=== PATIENT | female | born 1985 | race Caucasian/White ===

== ENCOUNTER 2017-07-19 20:32 | Emergency (ER) | payer MEDICAID ==
[~2017-07-19] VITALS: Ht 162.6 cm; Wt 68.0 kg
[~2017-07-19 20:32] MED LIST: CETI-102 PO; TRAM50TA2 PO
[2017-07-19 21:32] LABS: *URINE HCG, QUAL NEGATIVE (NEGATIVE)
[2017-07-19 21:35] LABS: BASOPHILS % (AUTO) 0.5 % (0.0-2.0); EOSINOPHILS # (AUTO) 0.1 K/uL (0.0-0.7); EOSINOPHILS % (AUTO) 1.4 % (0.0-7.0); HEMATOCRIT 42.1 % (31.2-41.9); HEMOGLOBIN 14.2 g/dL (10.9-14.3); LYMPHOCYTES # (AUTO) 3.1 K/uL (20.0-40.0); LYMPHOCYTES % (AUTO) 50.2 % (20.5-51.5); MEAN CORPUSCULAR HGB CONC 34 g/dL (32.3-35.6); MEAN CORPUSCULAR VOLUME 92.3 fL (75.5-95.3); MONOCYTES # (AUTO) 0.6 K/uL (2.0-10.0); MONOCYTES % (AUTO) 9.4 % (0.0-11.0); NEUTROPHILS # (AUTO) 2.4 K/uL (1.8-8.9); NEUTROPHILS % (AUTO) 38.5 % (38.5-71.5); PLATELET COUNT (AUTO) 264 K/uL (179-408); RED BLOOD CELL COUNT(AUTO) 4.56 MIL/uL (3.63-4.92); WHITE BLOOD COUNT (AUTO) 6.2 K/uL (3.8-11.8)
[2017-07-19 21:39] LABS: POTASSIUM 3.5 mmol/L (3.5-5.1)
--- NOTE | 2017-07-19 21:42 | NUR ---
US AT BEDSIDE
[2017-07-19 21:44] LABS: BILIRUBIN,DIRECT 0.1 mg/dL (0.0-0.2); BILIRUBIN,TOTAL 0.3 mg/dL (0.2-1.0); TOTAL PROTEIN, SERUM 8.2 g/dL (6.4-8.2)
[2017-07-19] MEDS ORDERED: ONDANSETRON IV *ER 4 MG/2 ML VIAL IV ONE (22:15)
[2017-07-19] MEDS ORDERED: KETOROLAC TROMETHAMINE 30 MG INJ IVP ONE (22:15)
[2017-07-19] MEDS ORDERED: KETOROLAC TROMETHAMINE 30 MG INJ ONE (22:32)
[2017-07-19] MEDS ORDERED: ONDANSETRON 4 MG/2 ML VIAL ONE (22:32)
--- NOTE | 2017-07-19 22:45 | NUR ---
Patient discharged to home in stable conditon. Written and verbal after care instructions given. Patient verbalizes understanding of instructions. Patient reported reduced pain prior to discharge. Patient able to ambulate unassisted with steady gait. Patient left with all personal belongings.
[2017-07-19 22:49] VITALS: BP 112/61
== END 2017-07-19 22:45 | disposition home or self-care (01) ==
LOC: ER 20:33
DX: N92.0 Excessive and frequent menstruation with regular cycle (principal); R10.2 Pelvic and perineal pain; F17.210 Nicotine dependence, cigarettes, uncomplicated; Z79.891 Long term (current) use of opiate analgesic; Z79.899 Other long term (current) drug therapy
CPT/HCPCS: 36415; 76856; 83690; 84703; 85025; A4663; J1885; J2405

== ENCOUNTER 2019-07-24 13:02 | Emergency (ER) | payer MEDICAID ==
[~2019-07-24] VITALS: Ht 162.6 cm; Wt 70.3 kg
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
--- NOTE | 2019-07-24 13:09 | NUR ---
Patient ambulated with slow steady gait to ER bed 4B, AOx4, calm, pending MD evaluation
--- NOTE | 2019-07-24 13:18 | NUR ---
@bedside, MSE in progress
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
== END 2019-07-24 14:02 | disposition home or self-care (01) ==
LOC: ER 13:10
DX: R07.89 Other chest pain (principal); S40.012A Contusion of left shoulder, initial encounter; S20.211A Contusion of right front wall of thorax, initial encounter; V43.51XA Car driver injured in collision with sport utility vehicle in traffic accident, initial encounter; Y92.410 Unspecified street and highway as the place of occurrence of the external cause
CPT/HCPCS: 71101; A4663

== ENCOUNTER 2019-10-13 14:21 | Emergency (ER) | payer MEDICAID, OTHER ==
[~2019-10-13] VITALS: Ht 162.6 cm; Wt 74.8 kg
[~2019-10-13 14:21] MED LIST changes: -CETI-102 PO; +CETI-110 PO
--- NOTE | 2019-10-13 14:37 | NUR ---
PT IS IN ROOM #2A. DR BARDALES EVALUATED THE PT.
[2019-10-13] MEDS ORDERED: HYDROCODONE/APAP 5-325MG TABLET PO ONE (14:45)
[2019-10-13] MEDS ORDERED: KETOROLAC TROMETHAMINE 60 MG INJ IM ONE ×2 (14:45)
[2019-10-13] MEDS ORDERED: HYDROCODONE/APAP 5-325MG TABLET ONE (14:46)
[2019-10-13] MEDS ORDERED: MORPHINE SULFATE 4 MG/1 ML DISP.SYRIN IM ONE (15:30)
[2019-10-13] MEDS ORDERED: MORPHINE SULFATE 4 MG/1 ML DISP.SYRIN ONE (15:31)
[2019-10-13 15:52] VITALS: BP 131/66
--- NOTE | 2019-10-13 15:52 | NUR ---
PT WAS D/C'd TO HOME. D/C INSTRUCTIONS GIVEN TO THE PT.
== END 2019-10-13 15:53 | disposition home or self-care (01) ==
LOC: ER 14:22
DX: S39.012A Strain of muscle, fascia and tendon of lower back, initial encounter (principal); X58.XXXA Exposure to other specified factors, initial encounter; Y93.89 Activity, other specified; Y92.013 Bedroom of single-family (private) house as the place of occurrence of the external cause; F17.200 Nicotine dependence, unspecified, uncomplicated; Z87.11 Personal history of peptic ulcer disease
CPT/HCPCS: 96372 ×2; 99284; J1885; J2270; A4663

== ENCOUNTER 2019-12-14 13:50 | Emergency (ER) | payer OTHER ==
[~2019-12-14] VITALS: Ht 162.6 cm; Wt 74.8 kg
[~2019-12-14 13:50] MED LIST changes: -CETI-110 PO; +CETI-90 PO
--- NOTE | 2019-12-14 14:42 | NUR ---
chaperoned pelvic us, pt tolerated well.
[2019-12-14 14:50] LABS: *BILIRUBIN,URIN NEGATIVE (NEGATIVE); *BLOOD, URINE NEGATIVE (NEGATIVE); *CLARITY,URINE CLEAR (CLEAR); *COLOR,URINE LIGHT YELLOW (YELLOW); *KETONES,URINE NEGATIVE (NEGATIVE); *UROBILINOGEN,URINE 0.2 E.U./dl (NORMAL); LEUKOCYTE ESTERASE ,URINE NEGATIVE (NEGATIVE); NITRITE, URINE NEGATIVE (NEGATIVE); PH,URINE 7.5 (5.0-8.0); UGLUCOSE NEGATIVE (NEGATIVE)
[2019-12-14 15:07] LABS: BASOPHILS % (AUTO) 0.4 % (0.0-2.0); EOSINOPHILS % (AUTO) 0.8 % (0.0-7.0); HEMATOCRIT 37.3 % (31.2-41.9); HEMOGLOBIN 12.4 g/dL (10.9-14.3); LYMPHOCYTES # (AUTO) 1.6 K/uL (20.0-40.0); LYMPHOCYTES % (AUTO) 26.5 % (20.5-51.5); MEAN CORPUSCULAR HEMOGLOBIN 31.3 uug (24.7-32.8); MEAN CORPUSCULAR HGB CONC 33 g/dL (32.3-35.6); MEAN CORPUSCULAR VOLUME 93.8 fL (75.5-95.3); MONOCYTES # (AUTO) 0.5 K/uL (2.0-10.0); MONOCYTES % (AUTO) 8.3 % (0.0-11.0); NEUTROPHILS # (AUTO) 3.8 K/uL (1.8-8.9); PLATELET COUNT (AUTO) 194 K/uL (179-408); RED BLOOD CELL COUNT(AUTO) 3.97 MIL/uL (3.63-4.92); WHITE BLOOD COUNT (AUTO) 5.9 K/uL (3.8-11.8)
[2019-12-14 15:09] LABS: CREATININE 0.8 mg/dL (0.6-1.3); POTASSIUM 4.2 mmol/L (3.5-5.1)
[2019-12-14 15:15] LABS: BILIRUBIN,DIRECT 0.1 mg/dL (0.0-0.2); BILIRUBIN,TOTAL 0.5 mg/dL (0.2-1.0); TOTAL PROTEIN, SERUM 6.9 g/dL (6.4-8.2)
[2019-12-14 15:50] VITALS: BP 102/76
--- NOTE | 2019-12-14 15:50 | NUR ---
Patient discharged to home in stable condition. Written and verbal after care instructions given. Patient verbalizes understanding of instructions. Stressed follow up or return to ER for worsening s/s.pt walks in steady gait
--- NOTE | 2019-12-14 16:14 | NUR ---
cali hernandez came back pt candidate. marguerite pt to come back.
--- NOTE | 2019-12-14 16:55 | NUR ---
Patient discharged to home in stable condition. Written and verbal after care instructions given. Patient verbalizes understanding of instructions. Stressed follow up or return to ER for worsening s/s.
--- NOTE | 2019-12-14 18:00 | NUR ---
Note undone in [facility] - 12/14/19 at 1803 by PARADISE 1 DOSE OF RHOGAM GIVEN IM PER MD DESIR. TOLERATED WELL. Addendum: 12/14/19 at 1802 by PARADISE Amendment undone in [facility] - 12/14/19 at 1803 by PARADISE I DOSE RHOGAM GIVEN IM LT [facility]. TOLERATED WELL.
--- NOTE | 2019-12-14 18:04 | NUR ---
1 DOSE RHOGAM ADMINISTERED IM ON LT GLUTEUS PER MD ORDER. TOLERATED WELL.
== END 2019-12-14 15:56 | disposition home or self-care (01) ==
LOC: ER 13:50
DX: O03.4 Incomplete spontaneous abortion without complication (principal)
CPT/HCPCS: 36415; 76856; 80048; 80076; 81001; 84702; 85025; 86850; 86900; 86901; 96372; 99285; J2790; A4663

== ENCOUNTER 2020-01-02 11:52 | Emergency (ER) | payer OTHER ==
[~2020-01-02] VITALS: Ht 162.6 cm; Wt 74.8 kg
[2020-01-02] MEDS ORDERED: [UNRECOGNIZED DRUG - REMARK] (12:12)
[2020-01-02] MEDS ORDERED: IBUP800T54 PO (12:12)
[2020-01-02] MEDS ORDERED: MORPHINE SULFATE 4 MG/1 ML DISP.SYRIN ONE ×2 (12:27→19:55)
[2020-01-02] MEDS ORDERED: ONDANSETRON 4 MG/2 ML VIAL ONE ×2 (12:27→19:55)
[2020-01-02] MEDS ORDERED: MORPHINE SULFATE 2 MG/1 ML DISP.SYRIN IV ONE (12:30)
[2020-01-02] MEDS ORDERED: IV NORMAL SALINE 1000 ML BAG IV ONE ×2 (12:30→16:00)
[2020-01-02] MEDS ORDERED: ONDANSETRON 4 MG/2 ML VIAL IV ONE ×2 (12:30→20:00)
[2020-01-02 12:45] LABS: BASOPHILS # (AUTO) 0.1 K/uL (0.0-8.0); BASOPHILS % (AUTO) 0.7 % (0.0-2.0); EOSINOPHILS % (AUTO) 0.1 % (0.0-7.0); HEMATOCRIT 38.3 % (31.2-41.9); HEMOGLOBIN 12.8 g/dL (10.9-14.3); LYMPHOCYTES # (AUTO) 1.1 K/uL (20.0-40.0); LYMPHOCYTES % (AUTO) 9.4 % (20.5-51.5); MEAN CORPUSCULAR HEMOGLOBIN 30.9 uug (24.7-32.8); MEAN CORPUSCULAR HGB CONC 33 g/dL (32.3-35.6); MEAN CORPUSCULAR VOLUME 92.5 fL (75.5-95.3); MONOCYTES # (AUTO) 0.5 K/uL (2.0-10.0); MONOCYTES % (AUTO) 4.7 % (0.0-11.0); NEUTROPHILS # (AUTO) 9.6 K/uL (1.8-8.9); NEUTROPHILS % (AUTO) 85.1 % (38.5-71.5); PLATELET COUNT (AUTO) 190 K/uL (179-408); RED BLOOD CELL COUNT(AUTO) 4.14 MIL/uL (3.63-4.92); WHITE BLOOD COUNT (AUTO) 11.2 K/uL (3.8-11.8)
[2020-01-02 12:54] LABS: CREATININE 0.8 mg/dL (0.6-1.3); POTASSIUM 3.5 mmol/L (3.5-5.1)
--- NOTE | 2020-01-02 13:05 | NUR ---
Pt ambulated to restroom, urine specimen sent to lab. Pt states her pain is back up to 8/[address] Thomson notified.
[2020-01-02 13:10] LABS: BILIRUBIN,DIRECT 0.1 mg/dL (0.0-0.2); BILIRUBIN,TOTAL 0.5 mg/dL (0.2-1.0); TOTAL PROTEIN, SERUM 7.4 g/dL (6.4-8.2)
[2020-01-02] MEDS ORDERED: HYDROMORPHONE 1 MG/1 ML DISP.SYRIN ONE ×4 (13:13→23:19)
[2020-01-02] MEDS ORDERED: HYDROMORPHONE 1 MG/1 ML DISP.SYRIN IV ONE ×4 (13:15→23:15)
[2020-01-02 13:17] LABS: *URINE HCG, QUAL NEG (NEGATIVE)
[2020-01-02 13:18] LABS: *BILIRUBIN,URIN NEGATIVE (NEGATIVE); *BLOOD, URINE NEGATIVE (NEGATIVE); *CLARITY,URINE CLEAR (CLEAR); *COLOR,URINE YELLOW (YELLOW); *KETONES,URINE 2+ (NEGATIVE); *UROBILINOGEN,URINE 0.2 E.U./dl (NORMAL); LEUKOCYTE ESTERASE ,URINE NEGATIVE (NEGATIVE); NITRITE, URINE NEGATIVE (NEGATIVE); PH,URINE 8.5 (5.0-8.0); UGLUCOSE NEGATIVE (NEGATIVE)
--- NOTE | 2020-01-02 14:15 | NUR ---
Pt resting with NAD noted at this time, pending CT results.
--- NOTE | 2020-01-02 15:50 | NUR ---
Per pt to be admitted to m/s. ER admitting calling pt's HMO for auth for admission.
--- NOTE | 2020-01-02 16:15 | NUR ---
Spoke with pt's HMO rep via telephone regarding transfer. Requested information provided via telephone. HMO to call back with further transfer information. Dr. Thomson and I spoke with the pt regarding the plan of care. Pt is aware of the pending transfer and signed the consent.
--- NOTE | 2020-01-02 16:30 | NUR ---
spoke with from 's HMO via telephone.
--- NOTE | 2020-01-02 17:42 | NUR ---
Pt resting with NAD noted at this time, pending transfer information.
--- NOTE | 2020-01-02 17:59 | NUR ---
Benito Barreto pt has been accepted by and will be transfered to [facility]. She will call back with further information. Requested information faxed to [phone].
[2020-01-02 18:11] LABS: BASOPHILS % (AUTO) 0.5 % (0.0-2.0); EOSINOPHILS % (AUTO) 0.3 % (0.0-7.0); HEMATOCRIT 33.4 % (31.2-41.9); HEMOGLOBIN 11.2 g/dL (10.9-14.3); LYMPHOCYTES # (AUTO) 1.9 K/uL (20.0-40.0); LYMPHOCYTES % (AUTO) 19.2 % (20.5-51.5); MEAN CORPUSCULAR HEMOGLOBIN 31.1 uug (24.7-32.8); MEAN CORPUSCULAR HGB CONC 34 g/dL (32.3-35.6); MEAN CORPUSCULAR VOLUME 92.6 fL (75.5-95.3); MONOCYTES # (AUTO) 0.8 K/uL (2.0-10.0); NEUTROPHILS # (AUTO) 7.2 K/uL (1.8-8.9); PLATELET COUNT (AUTO) 158 K/uL (179-408)
[2020-01-02] MEDS ORDERED: MORPHINE SULFATE 4 MG/1 ML DISP.SYRIN IV ONE (20:00)
--- NOTE | 2020-01-02 20:20 | NUR ---
Spoke with Mary Lou, , case being reviewed now by Nursing Rabies Inspector.
--- NOTE | 2020-01-02 21:32 | NUR ---
Received transfer information, patient going to [facility], Accepting MD is Dr. Fox, room 909, number to report to
--- NOTE | 2020-01-02 22:00 | NUR ---
Called Luca, trip#[phone], eta [phone].
--- NOTE | 2020-01-02 23:42 | NUR ---
Luca arrived to ER to transport patient to [facility]. Report and documentation given to EMT.
== END 2020-01-02 23:59 | disposition short-term general hospital (02) ==
LOC: ER 11:52
DX: N83.201 Unspecified ovarian cyst, right side (principal); K66.1 Hemoperitoneum; R10.84 Generalized abdominal pain; Z87.11 Personal history of peptic ulcer disease; Z88.0 Allergy status to penicillin; F17.200 Nicotine dependence, unspecified, uncomplicated; I49.3 Ventricular premature depolarization; Z20.828 Contact with and (suspected) exposure to other viral communicable diseases
CPT/HCPCS: 36415; 71045; 74176; 76856; 80048; 80076; 81001; 83690; 84702; 84703; 85025 ×2; 86850; 86870; 86900; 86901; 87426; 93005; 96361; 96374; 96375; 96376; 99291; J1170 ×4; J2270 ×2; J2405 ×2; A4663; J7030